=== PATIENT | female | born 1945 | race American Indian/Alaskan Native ===

== ENCOUNTER 2017-08-01 07:18 | Day surgery (SDC) | payer MEDICARE ==
[2017-08-01] MEDS ORDERED: NACL 0.9% 1000 ML 1,000 ML IV SCH (08:00)
--- NOTE | 2017-08-01 08:49 | Anesthesia Day of Surgery ---
Anesthesia Day of Surgery - Day of Surgery Patient Examined: Yes Patient H&P Reviewed: Yes Patient is NPO: Yes
--- NOTE | 2017-08-01 08:49 | Anesthesia Consultation ---
Anesthesia Consult and Med Hx Date of service: 08/01/17 - Airway Anesthetic Teeth Evaluation: Poor ROM Head & Neck: Adequate Mental/Hyoid Distance: Adequate Mallampati Class: Class III Intubation Access Assessment: Possibly Difficult - Pulmonary Exam CTA: Yes - Cardiac Exam Cardiac Exam: RRR Anesthetic Concerns: 2/6 Systolic murmur. Poor dentition. Multiple missing and broken teeth. - Pre-Operative Health Status ASA Pre-Surgery Classification: ASA4 Proposed Anesthetic Plan: MAC - Pre-Anesthesia Comment Pre-Anesthesia Comments: Etomidate - Pulmonary Hx Smoking: No Hx Asthma: Yes SOB: Yes COPD: Yes (emphysema) Hx Pneumonia: No Hx Sleep Apnea: Yes (cpap) - Cardiovascular System Hx Hypertension: Yes (19 YRS) Hx Heart Attack/AMI: No (H/O CHF, presently breathing at her baseline) Hx Angina: No Hx Peripheral Vascular Disease: Yes (diabetic peripheral neuropathy) - Central Nervous System Hx Neuromuscular Disorder: Yes (peripheral neuropathy) Hx Psychiatric Problems: Yes - Gastrointestinal Hx Gastroesophageal Reflux Disease: Yes - Endocrine Hx Non-Insulin Dependent Diabetes: Yes (accu check 127 @ 1210) - Other Systems Hx Obesity: Yes
[2017-08-01] MEDS ORDERED: PEPCID IV NR (09:00)
[2017-08-01] MEDS ORDERED: PEPCID IV ONE (09:02)
--- NOTE | 2017-08-01 09:15 | Short Stay Summary ---
Short Stay Documentation Date of service: 08/01/17 Narrative H&P: 72 year old presents for colonoscopy for high risk screening in view of a personal history of colon polyps. Last colonoscopy 2014 at which time prep was suboptimal. - History Principal diagnosis: high risk screening, personal history of colon polyps H&P: obtained from office - Allergies and Medications Current Medications: Allergies ciprofloxacin Allergy (Verified 05/08/15 10:20) Swelling latex Allergy (Verified 05/08/15 10:20) Itching nitrofurantoin [From Macrobid] Allergy (Verified 05/08/15 10:21) Swelling nitrofurantoin macrocrystalline [From Macrobid] Allergy (Verified 05/08/15 10:20 ) Swelling Penicillins Allergy (Verified 05/02/14 14:06) Swelling MACROFURIN Allergy (Uncoded 05/08/15 09:46) Nausea Home Medications Medication Instructions Recorded Confirmed Last Taken Type Escitalopram Oxalate [Lexapro] 1 tab PO DAILY 04/16/14 05/08/15 07/30/17 History Esomeprazole Magnesium [NexIUM] 1 cap PO DAILY 04/16/14 05/08/15 07/30/17 History Gabapentin 1 cap PO TID 04/16/14 05/08/15 07/30/17 History Hydrochlorothiazide 1 tab PO BID 04/16/14 05/08/15 07/30/17 History Ipratropium/Albuterol Sulfate 1 puff INHALATION DAILY 04/16/14 05/08/15 History [Combivent Respimat] traMADol [Ultram 50 MG tab] 1 tab PO PRN PRN 04/16/14 05/08/15 07/30/17 History Lisinopril 1 tab PO DAILY 05/06/15 05/08/15 07/30/17 History Active Medications Famotidine (Pepcid) 20 mg IV PREOP NR Stop: 08/01/17 16:00 Last Admin: 08/01/17 09:10 Dose: 20 mg Sodium Chloride (Nacl 0.9% 1000 Ml) 1,000 mls @ 50 mls/hr IV DIRECT ANDREW Last Admin: 08/01/17 08:42 Dose: 50 mls/hr - Hospital course Hospital course: Uneventful colonoscopy. - Disposition Condition at discharge: Good Disposition: DC-01 TO HOME OR SELFCARE - Discharge Diagnoses (1) Colon polyps Status: Acute (2) Diverticulosis Status: Acute (3) Internal hemorrhoids Status: Acute (4) Personal history of colonic polyps Status: Acute Short Stay Discharge Plan Activity: other (no driving today) Diet: other (may resume usual diet) Additional Instructions: 1. No NSAIDs for 14 days. 2. Patient to call for path results in 10 days. 3. First degree relatives should be informed that polyps run in the family and to begin their colon screening at age 40 rather than age 49. Follow up with: VIRGINIA DANIEL MD [Primary Care Provider] - 7 Days
[2017-08-01] MEDS ORDERED: WATER FOR IRRIG STERILE IR ONE (09:28)
[2017-08-01] MEDS ORDERED: WATER FOR IRRIG STERILE ONE ×2 (09:28→13:34)
[2017-08-01] MEDS ORDERED: DIPRIVAN 10 MG/ML IV ONE ×2 (09:33)
[2017-08-01] MEDS ORDERED: SUBLIMAZE ONE (09:33)
--- NOTE | 2017-08-01 10:12 | Operative Report ---
Operative Report Operative Report: Date of procedure: 08/01/2017 Preprocedure diagnosis: Personal history of colon polyps Post procedure diagnosis: Colon polyps, diverticulosis, internal hemorrhoids, melanosis Procedure name(s): Colonoscopy with snare polypectomy 4 Surgeon: Nakul Longo MD Anesthesia: Monitored anesthesia care EBL: None Procedure: The indications, techniques, potential complications and alternatives , had been discussed in full detail prior to the date of the exam, and once again on the day of the exam. Questions were encouraged and answered, and consent was thereby obtained. The patient was placed in the left lateral decubitus position, and was medicated by anesthesia services. See the anesthesia records for details. The anal sphincter was digitally dilated. The digital exam was unremarkable. The tip of a [employer] adult video colonoscope was inserted through the anal sphincter and into the rectal vault. It was then advanced proximally under continuous visualization of the lumen to the cecum without difficulty. Along the way, a 4 mm sessile polyp was excised from the mid transverse colon with a cold snare and retrieved. There was no bleeding. Thereafter the instrument was advanced fully to the cecum. The prep was adequate. Lavage and suctioning were employed as needed. No pathology was found in the cecum. The appendiceal orifice and ileocecal valve appeared normal. From the cecum, the instrument was slowly withdrawn with careful circumferential examination of the colonic mucosa. Noted particularly in the proximal colon was a very fine mucosal pattern of melanosis. Two polyps, 7-8 mm, semi-pedunculated, were excised from the ascending colon with a snare and cautery. Both were retrieved. There was no bleeding. The remainder the ascending colon appeared normal, as did the hepatic flexure and transverse colon. A 3 mm semi-pedunculated polyp was excised from the splenic flexure with a cold snare and retrieved. There was no significant bleeding. The descending colon and sigmoid colon contained a few small diverticula but no additional polyps were found. The rectum was normal from the forward view and retroflexion revealed internal hemorrhoids. No other pathology was found. The procedure was very well tolerated. Postprocedure she was monitored in the recovery area of the GI lab to ensure stability prior to her release. See the outpatient record for details regarding instructions to patient, medications and plans for follow-up. Final diagnosis: 1. Sessile polyp, 4 mm, mid transverse colon 2. Two semi-pedunculated polyps, 7-8 mm, ascending colon 3. Semi-pedunculated polyp, 3 mmsplenic flexure 4. Mild diverticulosis 5. Mild melanosis 6. Internal hemorrhoids Colon screening information: Previous colonoscopy 2014 however prep was suboptimal. Next colonoscopy will be in 3 years Nakul Longo M.D. Dictated 08/01/2017 at 10:10 AM
--- NOTE | 2017-08-01 10:25 | Post Anesthesia Evaluation ---
- Post Anesthesia Evaluation Patient Participated: Yes Airway Patent: Yes Stable Respiratory Function: Yes Temp > 96.8F: Yes Pain Manageable: Yes Adequeate Hydration: Yes Anesthesia Complications: No
[2017-08-01 11:01] VITALS: BP 136/68
== END 2017-08-01 07:19 | disposition home or self-care (01) ==
LOC: GIO 07:18
PROVIDERS: ATTEND Internal Medicine Gastroenterology
DX: D12.2 Benign neoplasm of ascending colon (principal); D12.3 Benign neoplasm of transverse colon; K59.00 Constipation, unspecified; K57.30 Diverticulosis of large intestine without perforation or abscess without bleeding; K64.8 Other hemorrhoids; K21.9 Gastro-esophageal reflux disease without esophagitis; J43.9 Emphysema, unspecified; G47.30 Sleep apnea, unspecified; L81.4 Other melanin hyperpigmentation; I11.0 Hypertensive heart disease with heart failure; I50.9 Heart failure, unspecified; E11.51 Type 2 diabetes mellitus with diabetic peripheral angiopathy without gangrene; E11.41 Type 2 diabetes mellitus with diabetic mononeuropathy; E11.39 Type 2 diabetes mellitus with other diabetic ophthalmic complication; H40.9 Unspecified glaucoma; M19.90 Unspecified osteoarthritis, unspecified site; E66.9 Obesity, unspecified; F41.9 Anxiety disorder, unspecified; F32.9 Major depressive disorder, single episode, unspecified; Z68.41 Body mass index [BMI] 40.0-44.9, adult; Z98.890 Other specified postprocedural states; Z79.84 Long term (current) use of oral hypoglycemic drugs; Z86.010 Personal history of colon polyps; Z99.89 Dependence on other enabling machines and devices; Z88.8 Allergy status to other drugs, medicaments and biological substances; Z88.4 Allergy status to anesthetic agent; Z88.1 Allergy status to other antibiotic agents; Z91.040 Latex allergy status
CPT/HCPCS: 45380; 45385; 82962; 88305; J2704; J7030; J3010